=== PATIENT | female | born 1950 | race Caucasian/White ===

== ENCOUNTER → 2017-02-07 | Outpatient (CLI) | payer OTHER | LOC: FIMAGING 10:34 | PROVIDERS: ATTEND Family Medicine | DX: Z12.31 Encounter for screening mammogram for malignant neoplasm of breast (principal) | CPT/HCPCS: G0202 ==

== ENCOUNTER → 2018-03-30 | Outpatient (CLI) | payer OTHER | LOC: FIMAGING 11:42 | PROVIDERS: ATTEND Family Medicine | DX: Z12.31 Encounter for screening mammogram for malignant neoplasm of breast (principal) ==

== ENCOUNTER → 2018-06-20 | Outpatient (CLI) | payer OTHER ==
[~2018-06-20] MED LIST: IOHEXOL 300 mgI/ML (OMNIPAQUE) 150 ML BTL IV ONE
== END ==
LOC: FIMAGING 10:02
PROVIDERS: ATTEND Urology
DX: C67.9 Malignant neoplasm of bladder, unspecified (principal); N28.1 Cyst of kidney, acquired; D35.02 Benign neoplasm of left adrenal gland
CPT/HCPCS: 74178; Q9967

== ENCOUNTER → 2018-07-06 | Outpatient (CLI) | payer OTHER | LOC: FIMAGING 10:02 | PROVIDERS: ATTEND Family Medicine | DX: R05 Cough (principal); F17.200 Nicotine dependence, unspecified, uncomplicated ==

== ENCOUNTER 2018-07-26 05:57 | Day surgery (SDC) | payer OTHER ==
[2018-07-26] MEDS ORDERED: mitoMYcin 40 MG in NS (SYRINGE) 20 ML TP ONE (06:00)
[2018-07-26] MEDS ORDERED: SODIUM BICARBONATE 650 MG TAB PO ONE (06:26)
[2018-07-26] MEDS ORDERED: OPIUM/BELLADONNA ALKALO SUPP PR PRN (06:26)
[2018-07-26] MEDS ORDERED: ceFAZolin 2 GM/DEXTROSE 100 ML IV ONE (06:26)
[2018-07-26] MEDS ORDERED: LR 1,000 ML IV ONE (06:27)
[2018-07-26] MEDS ORDERED: DEXAMETHASONE 4 MG/ML VIAL ONE (06:50)
[2018-07-26] MEDS ORDERED: ONDANSETRON 4 MG/2 ML VIAL ONE (06:50)
[2018-07-26] MEDS ORDERED: LIDOCAINE 2% 5 ML SDV ONE (06:50)
[2018-07-26] MEDS ORDERED: PROPOFOL 200 MG/20 ML VIAL ONE (06:51)
[2018-07-26] MEDS ORDERED: fentaNYL 100 MCG/2 ML INJ ONE (06:51)
[2018-07-26] MEDS ORDERED: MIDAZOLAM 2 MG/2 ML VIAL IVP ONE (06:55)
[2018-07-26] MEDS ORDERED: SCOPOLAMINE HYDROBROMIDE 1 MG/3 DAYS PATCH TD SCH (07:00)
--- NOTE | 2018-07-26 07:23 | PDHPUP ---
History & Physical Update H&P update statement: This history and physical update is based on an assessment of the patient which was completed after admission or registration (within 24 hours), but prior to the surgery/procedure. H&P update: H&P reviewed & patient examined, no change in patient's condition since H&P completed
[2018-07-26] MEDS ORDERED: IOPAMIDOL (ISOVUE-M 300) 15 ML VIAL ONE (07:35)
[2018-07-26] MEDS ORDERED: LIDOCAINE 2% JELLY 20 ML (UROJECT) ONE (07:36)
[2018-07-26] MEDS ORDERED: OPIUM/BELLADONNA ALKALO SUPP PR ONE (07:40)
--- NOTE | 2018-07-26 07:53 | POSTANESTH ---
Post Anesthetic Evaluation Cardiovascular Status: Normal, Stable Respiratory Status: Normal, Stable Level of Consciousness/Mental Status: Can Participate in Eval Pain Control: Adequate, Prn Tx Ordered Nausea/Vomiting Control: Adequate, Prn Tx Ordered Complications Possibly Related to Anesthesia: None Noted
--- NOTE | 2018-07-26 07:53 | PDANEPAE ---
ANE Past Medical History - Cardiovascular History Hx Hypertension: No Hx Arrhythmias: No Hx Chest Pain: No Hx Coronary Artery / Peripheral Vascular Disease: No Hx CHF / Valvular Disease: No Hx Palpitations: No - Pulmonary History Hx COPD: Yes Hx Asthma/Reactive Airway Disease: Yes Hx Recent Upper Respiratory Infection: No Hx Oxygen in Use at Home: No Hx Sleep Apnea: No Sleep Apnea Screening Result - Last Documented: Negative Pulmonary History Comment: pulm nodules- recent CT on file. inhaler for high humidity places only - Neurologic History Hx Cerebrovascular Accident: No Hx Seizures: No Hx Dementia: No - Endocrine History Hx Diabetes: No - Renal History Hx Renal Disorders: No - Liver History Hx Hepatic Disorders: No - Neurological & Psychiatric Hx Hx Neurological and Psychiatric Disorders: No - Cancer History Hx Cancer: Yes Cancer History Comment: bladder ca currently - Congenital Disorder History Hx Congenital Disorders: No - GI History Hx Gastrointestinal Disorders: No - Other Health History Other Health History: none - Chronic Pain History Chronic Pain: No - Surgical History Prior Surgeries: left meniscus knee surgery 2017. dottie. right foot surgery. hysterectomy. tonsillectomy ANE Review of Systems Review of Systems: - Exercise capacity METS (RN): 4 METS ANE Patient History - Allergies Allergies/Adverse Reactions: No Known Allergies Allergy (Verified 07/11/18 11:00) - Home Medications Home Medications: Ibuprofen 07/11/18 [Last Taken Unknown] Zolpidem Tartrate PRN 07/11/18 [Last Taken 07/24/18] - NPO status NPO Since - Liquids (Date): 07/26/18 NPO Since - Liquids (Time): 01:00 NPO Since - Solids (Date): 07/25/18 NPO Since - Solids (Time): 19:30 - Smoking Hx Smoking Status: Heavy smoker - Family Anes Hx Family Hx Anesthesia Complications: none ANE Labs/Vital Signs - Vital Signs Blood Pressure: 138/78 Heart Rate: 65 Respiratory Rate: 16 O2 Sat (%): 91 Height: 170.18 cm Weight: 69.4 kg ANE Physical Exam - Airway Neck exam: FROM Mallampati Score: Class 2 Mouth exam: normal dental/mouth exam - Pulmonary Pulmonary: no respiratory distress, no rales or rhonchi, clear to auscultation - Cardiovascular Cardiovascular: regular rate and rhythym, no murmur, rub, or gallop - ASA Status ASA Status: II ANE Anesthesia Plan Anesthesia Plan: GA w LMA
[2018-07-26] MEDS ORDERED: METOCLOPRAMIDE 10 MG/2 ML VIAL IVP PRN ×2 (08:05→09:58)
[2018-07-26] MEDS ORDERED: ONDANSETRON 4 MG/2 ML VIAL IVP PRN ×2 (08:05→09:58)
[2018-07-26] MEDS ORDERED: PROMETHAZINE HCL 25 MG/ML INJ IVP PRN ×2 (08:05→09:58)
[2018-07-26] MEDS ORDERED: ePHEDrine SULFATE 25 MG/5 ML SYR ONE (08:05)
[2018-07-26] MEDS ORDERED: HYDROmorphONE/DILAUDID 2 MG/ML INJ IVP PRN ×2 (08:05→09:58)
[2018-07-26] MEDS ORDERED: oxyCODONE IR 5 MG TAB PO PRN ×2 (08:05→09:58)
[2018-07-26] MEDS ORDERED: NALOXONE HCL 0.4 MG/ML INJ IVP PRN ×2 (08:05→09:58)
[2018-07-26] MEDS ORDERED: fentaNYL 100 MCG/2 ML INJ IVP PRN ×2 (08:05→09:58)
[2018-07-26] MEDS ORDERED: LR 500 ML IV PRN ×2 (08:05→09:58)
[2018-07-26] MEDS ORDERED: PHENYLEPHRINE HCL 100 MCG/ML SYR IVP PRN ×2 (08:05→09:58)
--- NOTE | 2018-07-26 08:47 | POSTOPPROG ---
Post Op Note Date of Operation: 07/26/18 Surgeon: Blessing Abdul Anesthesiologist: Karli Anesthesia: GET(General Endotracheal) Pre-op Diagnosis: bladder tumor Post-op Diagnosis: same Indication: bladder tumor Procedure: cysto,ble RGP, TURBT small Findings: papillary tumor posterior and near dome and abnl lesion right of R UO Inf/Abcess present in the surg proc area at time of surgery?: No EBL: Minimal Complications: none, pt tolerated procedure well Drains: Other (engel)
[2018-07-26] MEDS ORDERED: MEPERIDINE 25 MG/0.5 ML AMP IVP PRN (09:58)
[2018-07-26 10:33] VITALS: BP 134/72
--- NOTE | 2018-07-26 13:31 | GOP ---
[f rep st] OPERATIVE REPORT DATE OF OPERATION: 07/26/2018 SURGEON: Blessing Abdul MD ANESTHESIOLOGIST: Dr. Calvillo. PREOPERATIVE DIAGNOSIS: Recurrent bladder tumor. POSTOPERATIVE DIAGNOSIS: Recurrent bladder tumor. PROCEDURE PERFORMED: Cystoscopy, bilateral retrograde pyelograms, and transurethral resection of bladder tumor, small. COMPLICATIONS: none BLOOD LOSS: minimal SPECIMENS: deep and superficial tumor FINDINGS: Both the right and left collecting systems opacified normally with contrast with a delicate ureters and no hydronephrosis or hydroureter, and sharp calices without any filling defects. The bladder had recurrent bladder tumor. There were 2 round mounds of papillary tumor, both were in the posterior bladder, 1 was more posterior and the other was more posterior and toward the dome. The one toward the dome also had a lot of carpet-like papillary tumor extending out from it. There was also what appeared to be new small early tumors just lateral to the right ureteral orifice, not including the ureteral orifice. I removed all of these tumors. Her bladder was very thin and made resection difficult due to the thinness of the bladder and the resection was deep, and thus, I was unable to do mitomycin C due to concern of the deepness of the resection. DESCRIPTION OF PROCEDURE: She was taken back to the cystoscopy suite, placed on the cystoscopy table in supine position. General anesthesia induced without complication. Time-out performed. Core measures satisfied, including placement of a Shelli Hugger, SCDs, and administration of Ancef antibiotic. She was brought to the end table, placed in dorsal lithotomy position. All pressure points padded. Genitalia draped and prepped in a standard surgical fashion with Betadine. A rigid cystoscope easily cannulated the urethral meatus and was advanced atraumatically into the bladder. Jorgensen cystoscopy was performed and there was 2 mounds of papillary tumor in the posterior bladder, 1 more toward the dome and the other 1 more posterior and inferior. There was carpet-like papillary tumor surrounding the 1 close to the dome that extended out from the mound of tumor. There was also 3 little stellate appearing tumors that were just right of the lateral right ureteral orifice that were appeared to be early tumor. After jorgensen cystoscopy was performed with a 30-degree lens, I then focused attention with doing retrograde pyelograms. I did these pyelograms because she had a CT urogram and it did not completely opacify the distal left ureter, so I went ahead and advanced a 5-Occitan open-ended catheter in the left ureteral orifice and performed a retrograde pyelogram with contrast and the ureter was delicate, smooth, no filling defects distally or anywhere along the path to the renal pelvis. There was no hydronephrosis or hydroureter, and the calices were very sharp, and there were no filling defects. I then did a right retrograde pyelogram, and again, the ureter was delicate, smooth with no filling defects. No hydronephrosis or hydroureter, the calices were sharp in the right kidney. At this point, then I removed the cystoscope and then assembled the TURis resectoscope. I began resecting at the tumor that was up near the dome, posterior dome, and her bladder was very thin. Just touching the resectoscope to the bladder, it just went through the thickness of the bladder, so I carefully resected. It was deep. I felt at this time I would not give mitomycin. There was no perforation, but it was very thin and deep, so I removed all the tumor, and all the surrounding tumor around the papillary mound , and then just below that, but not connected, was another papillary mound that I also then removed. At the end, I felt this whole area had been completely resected, and I also resected further around than where just the cancer was seen as I was suspicious the surrounding tissue would likely form cancer. I then directed attention to the right lateral small bladder lesions that were to the right of the right ureteral orifice, but not including the ureteral orifice, and I took 1 swipe of my resectoscope and removed these. I did send all of the tumors that were posterior to the dome, and the 1 most posterior I sent separately than the 1 that was to the right of the ureteral orifice, because again, I am not certain that the ones to the right of the ureteral orifice were cancer, and so that is why I sent it separately. At this point, hemostasis was excellent. I used cautery liberally around all of the resection areas, including the bed and the surrounding mucosa to ensure hemostasis. Hemostasis was excellent at the end. I felt due to depths of these resections, I would keep her with a Shine catheter for 3 days, so at the end of the procedure, I placed the 16-Occitan Shine catheter with return of clear urine. I did do a lidocaine jelly before that into the urethra and then placed the catheter. At this point, I considered the procedure complete. She was awoken from anesthesia and transferred to PACU in good condition. /[id number]/MODL MTDD
[2018-07-29] MEDS ORDERED: PATCH REMOVAL 1 EA PATCH TD SCH (07:00)
== END 2018-07-26 11:55 | disposition home or self-care (01) ==
LOC: FSGY 05:57
PROVIDERS: ATTEND Urology
PROC: 0TBB8ZX Excision of Bladder, Via Natural or Artificial Opening Endoscopic, Diagnostic (ICD-10-PCS; principal; 2018-07-26 07:30)
DX: C67.9 Malignant neoplasm of bladder, unspecified (principal); G47.00 Insomnia, unspecified; J44.9 Chronic obstructive pulmonary disease, unspecified; Z72.0 Tobacco use
CPT/HCPCS: 52234; 76000; C1758; J0690; J1100; J2250; J2405; J2704; J3010; Q9967